=== PATIENT | female | born 2005 | race Asian ===

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

== ENCOUNTER 2023-04-30 10:23 | Emergency (ER) | payer OTHER ==
[~2023-04-30] VITALS: Ht 152.4 cm; Wt 63.2 kg
[~2023-04-30 10:23] MED LIST: ACET-66 PO; IBUP-1492 PO; MAGIC240 PO
[2023-04-30 10:26] VITALS: TEMP 101
[2023-04-30] MEDS ORDERED: SODIUM CHLORIDE 0.9% 1,900 ML IV ONE (10:45)
[2023-04-30] MEDS ORDERED: 0.9% SODIUM CHLORIDE 10 ML SYRINGE IVP PRN (10:45)
[2023-04-30] MEDS ORDERED: ACETAMINOPHEN 1000 MG/ISO-OSM 100 ML IV ONE (10:45)
[2023-04-30 10:48] LABS: BASOPHILS % (AUTO) 0.2 % (0.0-2.0); EOSINOPHILS % (AUTO) 0 % (1.0-6.0); HEMATOCRIT 35.1 % (36-46); LYMPHOCYTES # (AUTO) 0.6 K/uL (1.0-4.8); LYMPHOCYTES % (AUTO) 6.8 % (22.0-44.0); MEAN CORPUSCULAR HEMOGLOBIN 30.9 pg (26.0-34.0); MEAN CORPUSCULAR HGB CONC 34.2 G/dL (31.0-37.0); MEAN CORPUSCULAR VOLUME 90 fL (80-100); MONOCYTES # (AUTO) 0.4 K/uL (0.1-1.0); MONOCYTES % (AUTO) 4.1 % (2.0-9.0); NEUTROPHILS # (AUTO) 8.5 K/uL (1.8-7.7); NEUTROPHILS % (AUTO) 88.9 % (40.0-70.0); PLATELET COUNT (AUTO) 244 K/uL (150-450); RBC MORPHOLOGY COMMENT NORMAL RBC MORPH; RED BLOOD CELL COUNT(AUTO) 3.89 MIL/uL (4.00-5.20); WHITE BLOOD COUNT (AUTO) 9.5 K/uL (4.5-11.0)
[2023-04-30 10:48] LABS: COVID AG,FIA SOURCE NASAL SWAB
[2023-04-30 10:59] LABS: ANION GAP 9 mmol/L (8-16); CALCIUM, TOTAL 8.9 mg/dL (8.8-10.5); CARBON DIOXIDE 27 mmol/L (22-29); CHLORIDE 102 mmol/L (98-107); CREATININE 0.99 mg/dL (0.60-1.30); GLOMERULAR FILTR. RATE CALC > 60 mL/min (>60); GLUCOSE,RANDOM 131 mg/dL (70-110); POTASSIUM 3.4 mmol/L (3.5-5.1); SODIUM SERUM 138 mmol/L (136-145); UREA NITROGEN, BLOOD 7 mg/dL (7-18)
[2023-04-30 11:06] LABS: LACTIC ACID 1.3 mmol/L (0.4-2.0)
[2023-04-30 11:08] LABS: TROPONIN I-HIGH SENSITIVITY 4 ng/L (<51)
[2023-04-30 11:10] LABS: B-TYPE NATRIURETIC PEPTIDE < 5 pg/mL (0-100)
[2023-04-30 11:13] LABS: INFLUENZA TYPE A NEGATIVE FOR TYPE A (NEGATIVE); INFLUENZA TYPE B NEGATIVE FOR TYPE B (NEGATIVE)
[2023-04-30] MEDS ORDERED: IOHEXOL 350 MG/ML 100 ML VIAL ONE (11:22)
[2023-04-30] MEDS ORDERED: SODIUM CHLORIDE 0.9% 100 ML ONE (11:22)
[2023-04-30 11:24] LABS: ALANINE AMINOTRANSFERASE 30 U/L (12-78); ALBUMIN 4.1 g/dL (3.4-5.0); ALKALINE PHOSPHATASE 87 U/L (46-116); ASPARTATE AMINOTRANSFERASE 28 U/L (15-37); BILIRUBIN,TOTAL 0.7 mg/dL (0.1-1.0); CREATINE KINASE, TOTAL ONLY 82 U/L (26-192); HCG,QUANTITATIVE < 1 mIU/mL (0-6); TOTAL PROTEIN, SERUM 7.5 g/dL (6.4-8.2)
[2023-04-30 11:26] LABS: SARS-COV2 (COVID) ANTIGEN,FIA Positive (Negative)
[2023-04-30] MEDS ORDERED: KETOROLAC TROMETHAMINE 30 MG/ML VIAL IVP ONE (12:00)
[2023-04-30] MEDS ORDERED: CefTRIAXone 1 GM/DEXTROSE 50 ML IV ONE (12:15)
[2023-04-30 12:40] LABS: APPEARANCE,URINE CLEAR (CLEAR); BILIRUBIN,URINE NEGATIVE (NEGATIVE); COLOR,URINE LIGHT YELLOW (YELLOW); GLUCOSE, URINE (UA) NEGATIVE (NEGATIVE); KETONES,URINE NEGATIVE (NEGATIVE); LEUKOCYTE ESTERASE ,URINE TRACE (NEGATIVE); NITRATE,URINE NEGATIVE (NEGATIVE); OCCULT BLOOD,URINE NEGATIVE (NEGATIVE); PH,URINE 7.5 (5.0-8.0); PROTEIN,URINE 30-70 mg/dL (NEGATIVE); UROBILINOGEN,URINE <=1.0 mg/dL (<=1.0)
[2023-04-30 12:42] LABS: BACTERIA,URINE Few /HPF (None Seen); RBC,URINE 0-2 /HPF (0-2); SQUAMOUS EPITHELIAL CELL,UR Moderate /LPF (None Seen)
[2023-04-30 13:53] VITALS: BP 100/61; PULSE 77; RESP 16
[2023-04-30] MEDS ORDERED: IBUP-1492 PO (14:04)
[2023-04-30] MEDS ORDERED: ACET-3385 PO (14:04)
[2023-04-30] MEDS ORDERED: CEPH-558 PO (14:04)
== END 2023-04-30 14:25 | disposition home or self-care (01) ==
LOC: EMS 10:26
DX: N12 Tubulo-interstitial nephritis, not specified as acute or chronic (principal); U07.1 COVID-19
CPT/HCPCS: 99285; 74177; 96365; 71045; 96366; 96375; 87426; 80053; 81001; 82550; 83605; 83880; 84484; 84702; 85025; 87040; 87804; 36415; 87086; 87186; 93005; 96368; 84145; J0696; J1885; Q9967; J7030; J7050; J0131